=== PATIENT | female | born 1950 | race Caucasian/White ===

== ENCOUNTER → 2024-03-16 10:30 | Outpatient (REF) | payer MEDICARE, SELFPAY | LOC: HWRAD 10:30 | PROVIDERS: ATTENDING PHYSICIAN Internal Medicine Cardiovascular Disease | DX: I10 Essential (primary) hypertension (principal); I25.10 Atherosclerotic heart disease of native coronary artery without angina pectoris; I35.1 Nonrheumatic aortic (valve) insufficiency | CPT/HCPCS: 93880 ==

== ENCOUNTER → 2024-03-17 14:11 | Outpatient (REF) | payer MEDICARE, SELFPAY | LOC: HWRAD 14:11 | PROVIDERS: ATTENDING PHYSICIAN Nurse Practitioner Family; FAMILY PHYSICIAN Internal Medicine Cardiovascular Disease | DX: T07.XXXA Unspecified multiple injuries, initial encounter (principal) | CPT/HCPCS: 77080 ==

== ENCOUNTER → 2024-03-18 15:48 | Outpatient (REF) | payer MEDICARE, SELFPAY | LOC: HWRCS 15:48 | PROVIDERS: ATTENDING PHYSICIAN Internal Medicine Cardiovascular Disease; FAMILY PHYSICIAN Internal Medicine | DX: I10 Essential (primary) hypertension (principal); I25.10 Atherosclerotic heart disease of native coronary artery without angina pectoris; I35.1 Nonrheumatic aortic (valve) insufficiency | CPT/HCPCS: 93306 ==

== ENCOUNTER 2024-04-26 06:55 | Day surgery (SDC) | payer MEDICARE, SELFPAY ==
[2024-04-13 10:45] VITALS: BMI 17.3
== END 2024-04-26 09:13 | disposition home or self-care (01) ==
LOC: CATH 06:55
PROVIDERS: ATTENDING PHYSICIAN Internal Medicine Cardiovascular Disease
DX: I08.3 Combined rheumatic disorders of mitral, aortic and tricuspid valves (principal); I10 Essential (primary) hypertension; E78.5 Hyperlipidemia, unspecified; Z85.118 Personal history of other malignant neoplasm of bronchus and lung; Z87.891 Personal history of nicotine dependence; Z79.82 Long term (current) use of aspirin
CPT/HCPCS: 93312; 93320; 93325; 93005